=== PATIENT | female | born 1990 | race Caucasian/White ===

== ENCOUNTER 2020-05-19 13:51 | Emergency (ER) | payer SELFPAY ==
[~2020-05-19] VITALS: Ht 162.6 cm; Wt 98.0 kg
[2020-05-19] MEDS ORDERED: PNV1TABL77 PO (14:00)
[2020-05-19] MEDS ORDERED: ASCO500 PO (14:00)
[2020-05-19 15:30] VITALS: BP 125/87
[2020-05-19 16:16] LABS: APPEARANCE,URINE CLEAR (CLEAR); BILIRUBIN,URINE NEGATIVE (NEGATIVE); GLUCOSE, URINE (UA) NEGATIVE (NEGATIVE); KETONES,URINE TRACE mg/dL (NEGATIVE); LEUKOCYTE ESTERASE ,URINE NEGATIVE (NEGATIVE); NITRATE,URINE NEGATIVE (NEGATIVE); OCCULT BLOOD,URINE NEGATIVE (NEGATIVE); PH,URINE 5.5 (5.0-8.0); PROTEIN,URINE NEGATIVE (NEGATIVE); UROBILINOGEN,URINE 0.2 mg/dL (<=1.0)
== END 2020-05-19 17:38 | disposition left against medical advice (07) ==
LOC: EMS 13:54
DX: O20.0 Threatened abortion (principal); Z79.899 Other long term (current) drug therapy; Z3A.08 8 weeks gestation of pregnancy